=== PATIENT | male | born 1945 | race Two or more races ===

== ENCOUNTER 2021-11-13 08:14 | Day surgery (SDC) | payer MEDICARE ==
[~2021-11-13] VITALS: Ht 182.9 cm; Wt 95.5 kg
[2021-11-13] MEDS ORDERED: IBUP400 PO (08:53)
== END 2021-11-13 10:16 | disposition home or self-care (01) ==
LOC: ORSCSDS 08:14
PROVIDERS: Ophthalmology
PROC: 08RJ3JZ Replacement of Right Lens with Synthetic Substitute, Percutaneous Approach (ICD-10-PCS; principal; 2021-11-13 09:30)
DX: H25.13 Age-related nuclear cataract, bilateral (principal); K21.9 Gastro-esophageal reflux disease without esophagitis
CPT/HCPCS: J2001; J2250; J3010; J3301; J7040; V2632

== ENCOUNTER 2021-12-04 08:15 | Day surgery (SDC) | payer MEDICARE ==
[~2021-12-04] VITALS: Ht 182.9 cm; Wt 95.7 kg
[~2021-12-04 08:15] MED LIST: IBUP400 PO
[2021-12-04] MEDS ORDERED: PSEUDOEPHEDRIN PO (08:38)
--- NOTE | 2021-12-04 08:43 | NUR ---
12/04/21 0843 Susana Taylor CALL LIGHT WITHIN REACH. TETRACAINE AT 0840 PLEDGETT AT 0845 IN THE LEFT EYE
--- NOTE | 2021-12-04 10:14 | NUR ---
12/04/21 [facility] Angel Dubose MULTIPLE BP TAKEN POST OP. READJUSTED CUFF AND NEW CUFF USED (LG) LAST 2 READINGS. PT STATES BP IS NOT ELEVATED AND DOES NOT TAKE BP MED. PRE AND POST BP WRITTEN ON SHEET FOR PT INFORMATION. INFORMED TO SHARE INFORMATION WITH PCP.
== END 2021-12-04 11:02 | disposition home or self-care (01) ==
LOC: ORSCSDS 08:15
PROVIDERS: Ophthalmology
PROC: 08RK3JZ Replacement of Left Lens with Synthetic Substitute, Percutaneous Approach (ICD-10-PCS; principal; 2021-12-04 09:30)
DX: H25.12 Age-related nuclear cataract, left eye (principal); K21.9 Gastro-esophageal reflux disease without esophagitis; Z95.0 Presence of cardiac pacemaker; Z79.899 Other long term (current) drug therapy
CPT/HCPCS: J2250; J3010; J3301; J7040; V2632

== ENCOUNTER 2024-06-28 09:45 | Inpatient (IN) | payer MEDICARE ==
[~2024-06-28] VITALS: Ht 182.9 cm; Wt 98.5 kg
[~2024-06-28 09:45] MED LIST changes: +PSEUDOEPHEDRIN PO
[2024-06-28] MEDS ORDERED: FentaNYL Citrate 50 MCG/ML 2 ML Injection ONE ×2 (10:12→12:15)
[2024-06-28 10:18] LABS: Calcium, Ionized (POC) 1.01 mmol/L (1.10-1.46); Chloride (POC) 109 mmol/L (98-108); Glucose (ISTAT POC) 162 mg/dL (70-99); Potassium (POC) 3.6 mmol/L (3.5-5.5); Sodium (POC) 138 mmol/L (135-148); Total CO2 (POC) 16 mmol/L (21-32)
[2024-06-28 10:22] LABS: BASOPHILS ABSOLUTE AUTO 0.12 K/mm3 (0.00-0.23); BASOPHILS PERCENT AUTO 1 % (0-2); EOSINOPHILS ABSOLUTE AUTO 0.29 K/mm3 (0.00-0.68); EOSINOPHILS PERCENT AUTO 2 % (0-6); Hematocrit 47.3 % (37.0-53.0); Hemoglobin 14.6 g/dL (13.5-17.5); IMMATURE GRAN ABSOLUTE AUTO 0.33 K/mm3 (0.00-0.10); IMMATURE GRAN PERCENT AUTO 2 % (0-1); LYMPHOCYTES ABSOLUTE AUTO 5.25 K/mm3 (0.84-5.20); LYMPHOCYTES PERCENT AUTO 31 % (21-46); MONOCYTES ABSOLUTE AUTO 1.88 K/mm3 (0.16-1.47); MONOCYTES PERCENT AUTO 11 % (4-13); Mean Corpuscular HGB 31.1 pg (26.0-34.0); Mean Corpuscular HGB Conc 30.9 g/dL (31.5-36.5); Mean Corpuscular Volume 101 fL (80-100); Mean Platelet Volume 10.6 fL (9.1-12.4); NEUTROPHILS ABSOLUTE AUTO 9.02 K/mm3 (1.96-9.15); NEUTROPHILS PERCENT AUTO 53 % (41-73); NRBC ABSOLUTE 0.09 K/mm3 (0.00-0.02); NRBC Auto 0.5 /100 WBC (0.0-0.2); Platelet Count 191 K/mm3 (150-400); RDW Coefficient Variation 13.2 % (11.7-14.2); RDW Standard Deviation 49.9 fL (35.1-46.3); White Blood Cell Count 16.89 K/mm3 (4.00-11.30)
[2024-06-28] MEDS ORDERED: Vasopressin 20 UNITS in NS 100 ML IV SCH (10:35)
[2024-06-28] MEDS ORDERED: Midazolam HCl 1MG / ML 2ML Vial ONE ×2 (10:43→11:18)
[2024-06-28 10:45] LABS: Albumin, Blood 3.5 g/dL (3.4-5.0); Albumin/Globulin Ratio 0.9 (0.8-1.8); Bilirubin, Total 0.7 mg/dL (0.1-1.0); Bun/Creatinine Ratio 13.5 (12.0-20.0); Calcium, Blood 8.6 mg/dL (8.5-10.1); Creatinine, Blood 1.63 mg/dL (0.60-1.20); Globulin, Blood 4.1 g/dL (2.2-4.0); Potassium, Blood 3.8 mmol/L (3.5-5.5); Total Protein, Blood 7.6 g/dL (6.4-8.2)
[2024-06-28] MEDS ORDERED: Midazolam HCL 100 MG in NS 80 ML IV PRN (10:45)
[2024-06-28 11:14] LABS: Base Excess Venous -11.5 mmol/L; Bicarbonate Venous 15.3 mmol/L (24.0-30.0); PCO2 Venous 54.5 mmHg (38-42)
[2024-06-28 11:16] LABS: pH Blood Venous 7.12 (7.34-7.37)
[2024-06-28] MEDS ORDERED: fentaNYL citrate 1,000 MCG in NS 80 ML IV SCH (12:05)
[2024-06-28] MEDS ORDERED: propofoL 100 ML IV SCH ×2 (12:15→14:45)
[2024-06-28] MEDS ORDERED: FLU VACC TS2024-25(6MOS UP)/PF 45 MCG/0.5 ML SYRINGE IM ONE (12:30)
[2024-06-28] MEDS ORDERED: FentaNYL Citrate 50 MCG/ML 2 ML Injection IV PRN (12:30)
[2024-06-28] MEDS ORDERED: CefTRIAXone Sodium 1,000 MG in NS 100 ML IV SCH (12:36)
[2024-06-28] MEDS ORDERED: Sodium Bicarb 8.4% 1 MEQ/ML 50 ML Vial IV ONE (12:40)
[2024-06-28] MEDS ORDERED: NS 1,000 ML IV ONE ×6 (14:16→20:29)
[2024-06-28 15:00] VITALS: BP 114/77
[2024-06-28 15:08] LABS: PCO2 Arterial 41.3 mmHg (35-45); PO2 Arterial 297 mmHg (80-100); pH Blood Arterial 7.19 (7.35-7.45)
[2024-06-28 15:15] VITALS: BP 98/68
[2024-06-28 15:18] VITALS: BP 126/65
[2024-06-28 15:42] LABS: Albumin, Blood 2.8 g/dL (3.4-5.0); Albumin/Globulin Ratio 0.8 (0.8-1.8); Bilirubin, Total 0.4 mg/dL (0.1-1.0); Bun/Creatinine Ratio 13.7 (12.0-20.0); Calcium, Blood 8.2 mg/dL (8.5-10.1); Creatinine, Blood 1.82 mg/dL (0.60-1.20); Globulin, Blood 3.3 g/dL (2.2-4.0); Magnesium, Blood 2.2 mg/dL (1.6-2.4); Phosphorus, Blood 2.5 mg/dL (2.5-4.9); Potassium, Blood 3.1 mmol/L (3.5-5.5); Total Protein, Blood 6.1 g/dL (6.4-8.2)
[2024-06-28 15:53] VITALS: BP 119/61
[2024-06-28 16:08] LABS: Anti-Xa UFH, PHA Monitoring <0.10 IU/mL; International Normalized Ratio 1.43; Prothrombin Time Results 14.9 Sec (9.7-11.5)
[2024-06-28 16:15] VITALS: BP 106/58
[2024-06-28] MEDS ORDERED: ALTEPLASE 1 MG/ML IV SCH (16:30)
[2024-06-28] MEDS ORDERED: Calcium Chloride 10% 10 ML SYR IV ONE (17:26)
[2024-06-28] MEDS ORDERED: EPINEPhrine HCl 0.1 MG/ML 10ML SYR IV ONE (17:26)
[2024-06-28] MEDS ORDERED: Sodium Bicarb 8.4% 50 mEq Syringe IV ONE (17:26)
[2024-06-28] MEDS ORDERED: Dose Adjust by Pharmacy XX STA (17:36)
[2024-06-28] MEDS ORDERED: Heparin Sodium,Porcine/0.5 NS 500 ML IV SCH (17:40)
[2024-06-28] MEDS ORDERED: NS 250 ML IV ONE (18:12)
[2024-06-28] MEDS ORDERED: Heparin Sodium 1000 Units/ML 10ML MDV ONE ×3 (18:12→20:29)
[2024-06-28] MEDS ORDERED: NS 100 ML IV ONE (18:25)
[2024-06-28] MEDS ORDERED: Potassium Chloride 20 MEQ/15 ML UDC PO ONE (18:40)
[2024-06-28] MEDS ORDERED: Potassium Chloride 20 MEQ in NS 90 ML IV ONE (18:40)
--- NOTE | 2024-06-28 19:00 | NUR ---
ASSUMED CARE OF PT: ASSUMED CARE OF PT IN STAFF RESEARCH SCIENTIST FROM JT Cochran RN AT 1900. THIS RN TO STAFF RESEARCH SCIENTIST WITH PT TO MANAGE CRITICAL DRIPS. LEVOPHED INFUSING AT 25 MCG/MIN, FENTANYL AT 75 MCG/HR, AMIO AT 0.5 MG/MIN AND PROPOFOL AT 30 MCG/KG/MIN WHEN ASSUMED CARE OF PT. MAP <65 DURING STAFF RESEARCH SCIENTIST PROCEDURE, TITRATED LEVOPHED NEEDED. LEVOPHED TITRATED FROM 25-50 MCG/MIN DURING STAFF RESEARCH SCIENTIST PROCEDURE AND VASOPRESSIN RESTARTED AT 0.4 UNITS/MIN. PT RECEIVED A CHEST TUBE TO LEFT ANTERIOR CHEST WALL WHILE IN STAFF RESEARCH SCIENTIST R/T PNEUMOTHORAX. SEE STAFF RESEARCH SCIENTIST NOTES. PT BP STABILIZED AFTER CHEST TUBE INSERTION AND LEVO WAS THEN TITRATED BACK DOWN TO 25-30 MCG/MIN AND VASOPRESSIN SET TO SB. SEDATION TURNED DOWN TO 15 MCG/KG/MIN WHILE MAP <65, PT STARTED TO WAKE UP AND WITHDRAW TO PAINFUL STIMULI WHILE ON STAFF RESEARCH SCIENTIST TABLE. PROPOFOL TURNED BACK UP TO 25 MCG/KG/MIN FOR COMFORT AND VENT COMPLIANCE. ONCE STAFF RESEARCH SCIENTIST PROCEDURE COMPLETE PT TAKEN BACK TO ICU 13 BY BED.
--- NOTE | 2024-06-28 19:29 | NUR ---
SHIFT SUMMARY: NEURO: PATIENT OPENS EYES OCCASIONALLY. PATIENT TOLERATED THE VENT WELL. PATIENT ENDED THE SHIFT WITH PROPOFOL AT 20 MCG/KG/MIN. CPOT 0. FENTANYL GTT INFUSING AT 100 MCG/HOUR. [place] STOPPED AT ADMISSION TO TRANSITION TO PROPOFOL. CARDIAC: LEVOPHED TITRATED PER ARTERIAL LINE MAPS. VASOPRESSIN GTT INFUSING NEEDED TO MAINTAIN MAPS >65. CENTRAL LINE AND ARTERIAL LINE BOTH IN THE RIGHT FEMORAL REGION. HR IN THE 90S-100S. PULSES PALPABLE. RESPIRATORY: PATIENT ON AC/VC PLUS. SETTINGS 26/600/5/85%. ETCO2 DECLINED DURING THE AFTERNOON AND ENDED AT 14. LUNG SOUNDS DIMINISHED. ETT IN PLACE, SIZE 8.0, 24 AT THE TEETH. GI/: PATIENT HAD A BOWEL MOVEMENT AT ADMISSION. INITIAL CHARLES PLACEMENT ATTEMPT RESULTED IN THE PASSING OF A BLOOD CLOT. DR. RÍOS AWARE. THREE WAY CHARLES PLACED FOR POTENTIAL IRRIGATION. PRN IRRIGATION AT THIS TIME. NO FURTHER BLOOD CLOTS OR BLOOD DISCHARGE IN CHARLES. MINIMAL YELLOW OUTPUT. PSYCHSOCIAL: FAMILY AT BEDSIDE. THEY ARE SUPPORTIVE OF THE PATIENT AND APPRECIATIVE OF THE STAFF.
[2024-06-28] MEDS ORDERED: Midazolam HCl 1MG / ML 2ML Vial IM ONE (19:56)
[2024-06-28] MEDS ORDERED: Phenylephrine HCl 100 MCG/ML-NS 10MLSYR (1MG/10ML) IV ONE (19:56)
[2024-06-28] MEDS ORDERED: Etomidate 2MG / ML 10ML Vial IV ONE (19:56)
[2024-06-28] MEDS ORDERED: Phenylephrine HCl 100 MCG/ML-NS 10MLSYR (1MG/10ML) ONE (21:02)
[2024-06-28 22:19] LABS: PCO2 Arterial 34.8 mmHg (35-45); PO2 Arterial 93.3 mmHg (80-100)
[2024-06-28 22:21] LABS: pH Blood Arterial 7.26 (7.35-7.45)
[2024-06-28 22:45] LABS: BASOPHILS ABSOLUTE AUTO 0.02 K/mm3 (0.00-0.23); BASOPHILS PERCENT AUTO 0 % (0-2); EOSINOPHILS ABSOLUTE AUTO 0.01 K/mm3 (0.00-0.68); EOSINOPHILS PERCENT AUTO 0 % (0-6); Hematocrit 29.6 % (37.0-53.0); Hemoglobin 9.7 g/dL (13.5-17.5); IMMATURE GRAN ABSOLUTE AUTO 0.08 K/mm3 (0.00-0.10); IMMATURE GRAN PERCENT AUTO 1 % (0-1); LYMPHOCYTES ABSOLUTE AUTO 1.01 K/mm3 (0.84-5.20); LYMPHOCYTES PERCENT AUTO 6 % (21-46); MONOCYTES ABSOLUTE AUTO 1.47 K/mm3 (0.16-1.47); MONOCYTES PERCENT AUTO 9 % (4-13); Mean Corpuscular HGB 31.4 pg (26.0-34.0); Mean Corpuscular HGB Conc 32.8 g/dL (31.5-36.5); Mean Platelet Volume 10.4 fL (9.1-12.4); NEUTROPHILS ABSOLUTE AUTO 13.51 K/mm3 (1.96-9.15); NEUTROPHILS PERCENT AUTO 84 % (41-73); Platelet Count 149 K/mm3 (150-400); RDW Coefficient Variation 13.7 % (11.7-14.2); Red Blood Cell Count 3.09 M/mm3 (4.30-5.90)
[2024-06-28 22:53] LABS: Mean Corpuscular Volume 96 fL (80-100)
[2024-06-28 23:04] LABS: Magnesium, Blood 1.7 mg/dL (1.6-2.4)
[2024-06-28 23:22] LABS: Creatinine, Blood 1.93 mg/dL (0.60-1.20); Potassium, Blood 2.9 mmol/L (3.5-5.5)
[2024-06-28 23:23] LABS: Calcium, Blood 6.2 mg/dL (8.5-10.1)
--- NOTE | 2024-06-28 23:56 | NUR ---
ARRIVAL TO ICU FROM ORCHID WORKER: PT BACK TO ICU 13 FROM ORCHID WORKER AT 2155. PT INTUBATED AND SEDATED ON 25 MCG/KG/MIN OF PROPOFOL. PT HAD RESPONSE TO PAINFUL STIMULI IN ORCHID WORKER. PUPILS PINPOINT AND APPEAR SLUGGISH AT TIMES. VENT SETTINGS AC/VC 26/600/5.0/50%. SPO2 MID TO HIGH 90'S. LUNGS CLEAR. RR 20'S. ETCO2 15-20. ET TUBE 7.5, 24 AT THE TEETH. CIRCULAR SAW EDGE FUSER IN PLACE, SR WITH PVC'S, HR 90'S. MAP >65 ACCORDING TO A-LINE, LEVOPHED INFUSING AND TITRATED ACCORDINGLY. SEE FLOWSHEET FOR TITRATIONS. FENTANYL DRIP AT 75 MCG/HR. AMIO AT 0.5 MG/MIN, HEPARIN AT 18 U/KG/HR. CHARLES PATENT AND DRAINING TO GRAVITY VERY LITTLE YELLOW URINE. CHEST TUBE TO LEFT ANTERIOR CHEST WALL, DRESSING SECURED, C/D/I. A-LINE/CENTRAL LINE TO RIGHT GROIN, PATENT. LEFT GROIN SITE SHOWS NO SIGNS OF BLEEDING OR HEMATOMA. FLOWSTASIS IN PLACE. PT FAMILY AT THE BEDSIDE AFTER ORCHID WORKER PROCEDURE, UPDATED TO PT CONDITION. BED LOW AND LOCKED.
[2024-06-29] MEDS ORDERED: Dose Adjust by Pharmacy XX STA (01:17)
[2024-06-29 02:20] LABS: PCO2 Arterial 34.4 mmHg (35-45); PO2 Arterial 69.7 mmHg (80-100); pH Blood Arterial 7.27 (7.35-7.45)
[2024-06-29] MEDS ORDERED: Hydrogen Peroxide 1.5 % Solution MT SCH (04:00)
[2024-06-29 04:09] LABS: Hemoglobin 11.5 g/dL (13.5-17.5); Mean Corpuscular HGB 31.5 pg (26.0-34.0); Mean Corpuscular HGB Conc 33.8 g/dL (31.5-36.5); Mean Corpuscular Volume 93 fL (80-100); Mean Platelet Volume 10.2 fL (9.1-12.4); Platelet Count 155 K/mm3 (150-400); RDW Coefficient Variation 13.6 % (11.7-14.2); RDW Standard Deviation 46.2 fL (35.1-46.3); Red Blood Cell Count 3.65 M/mm3 (4.30-5.90); White Blood Cell Count 19.83 K/mm3 (4.00-11.30)
[2024-06-29 04:54] LABS: Albumin, Blood 2.8 g/dL (3.4-5.0); Albumin/Globulin Ratio 0.9 (0.8-1.8); Bilirubin, Total 0.4 mg/dL (0.1-1.0); Bun/Creatinine Ratio 11.7 (12.0-20.0); Calcium, Blood 7.5 mg/dL (8.5-10.1); Creatinine, Blood 2.64 mg/dL (0.60-1.20); Globulin, Blood 3.1 g/dL (2.2-4.0); Magnesium, Blood 2.1 mg/dL (1.6-2.4); Phosphorus, Blood 4.2 mg/dL (2.5-4.9); Potassium, Blood 4.4 mmol/L (3.5-5.5); Total Protein, Blood 5.9 g/dL (6.4-8.2)
--- NOTE | 2024-06-29 05:59 | NUR ---
SHIFT SUMMARY: PT WAKING UP TO VERBAL STIMULI WHEN SEDATION DECREASED. FOLLOWS COMMANDS, ABLE TO SQUEEZE HANDS BILATERALLY. VENT SETTINGS AC/VC 26/600/5.0/40% FIO2, SPO2 MID TO HIGH 90'S. LUNGS CLEAR. ETCO2 13-15. OUTSIDE RESIDENTIAL SALES PROFESSIONAL IN PLACE, SR WITH FREQUENT PVC'S. HR 70'S. MAP >65 ACCORDING TO A-LINE. LEVOPHED INFUSING TO MAINTAIN MAP >65 WITH VASOPRESSIN WELL. SEE FLOWSHEET FOR TITRATIONS. CURRENT RATE OF 30 MCG/MIN OF LEVO AND 0.04 UNITS/MIN VASOPRESSIN. PROPOFOL INFUSING AT 25 MCG/KG/MIN WITH FENTANYL AN ADJUNCT INFUSING AT 75 MCG/HR. HEPARIN GTT DECREASED TO 12 UNITS/KG/HR THIS SHIFT. AMIO CONTINUES AT 0.5 MG/MIN. CHEST TUBE TO LEFT ANTERIOR CHEST WALL, DRESSING C/D/I. ARTLINE AND CENTRAL LINE TO RIGHT GROIN BOTH PATENT. DRESSING CHANGED THIS SHIFT, C/D/I. FLOWSTASIS TO LEFT GROIN, SHOWS NO NEW SIGNS OF BLEEDING OR HEMATOMA. NEW BRUISING NOTED THIS SHIFT BUT SITE REMAINS SOFT TO THE TOUCH. ABDOMEN DISTENDED BUT SOFT. CHARLES PATENT AND DRAINING TO GRAVITY YELLOW URINE. FEET AND HANDS COOL TO TOUCH, PULSES PALPABLE. BED LOW AND LOCKED.
[2024-06-29] MEDS ORDERED: NS 250 ML IV PRN (08:10)
[2024-06-29] MEDS ORDERED: Enoxaparin 40 MG/0.4 ML SYR SC SCH (09:00)
[2024-06-29] MEDS ORDERED: Albumin Human 50 ML IV ONE (10:50)
[2024-06-29] MEDS ORDERED: Albumin (Human) 12.5gm/250ml 250 ML IV ONE (11:10)
[2024-06-29 11:11] LABS: Triglycerides 118 mg/dL (30-160)
--- NOTE | 2024-06-29 18:20 | NUR ---
Pt continues ventilated and sedated. Levophed titrated down this shift, see flowsheet. Fi02 down to 35% this shift. Flow-stasis device still in place, Dr. Olivas to reassess in the morning. No acute events this shift. See chart for further details.
[2024-06-29 21:50] VITALS: BP 150/54
[2024-06-29 22:39] VITALS: BP 13/58; BP 138/58
[2024-06-30] VITALS (10 sets, daily range): BP systolic 89–152; BP diastolic 40–57
[2024-06-30] MEDS ORDERED: Hydrogen Peroxide 1.5 % Solution MT SCH
[2024-06-30] MEDS ORDERED: Clarify Drug Order XX ONE ×2 (00:15→06:55)
[2024-06-30 06:04] LABS: BASOPHILS ABSOLUTE AUTO 0.06 K/mm3 (0.00-0.23); BASOPHILS PERCENT AUTO 0 % (0-2); EOSINOPHILS ABSOLUTE AUTO 0.04 K/mm3 (0.00-0.68); EOSINOPHILS PERCENT AUTO 0 % (0-6); Hematocrit 24.4 % (37.0-53.0); Hemoglobin 8.5 g/dL (13.5-17.5); IMMATURE GRAN ABSOLUTE AUTO 0.11 K/mm3 (0.00-0.10); IMMATURE GRAN PERCENT AUTO 1 % (0-1); LYMPHOCYTES ABSOLUTE AUTO 2.18 K/mm3 (0.84-5.20); LYMPHOCYTES PERCENT AUTO 12 % (21-46); MONOCYTES ABSOLUTE AUTO 1.87 K/mm3 (0.16-1.47); MONOCYTES PERCENT AUTO 11 % (4-13); Mean Corpuscular HGB Conc 34.8 g/dL (31.5-36.5); Mean Corpuscular Volume 92 fL (80-100); Mean Platelet Volume 11.4 fL (9.1-12.4); NEUTROPHILS ABSOLUTE AUTO 13.34 K/mm3 (1.96-9.15); NEUTROPHILS PERCENT AUTO 76 % (41-73); Platelet Count 117 K/mm3 (150-400); RDW Coefficient Variation 13.8 % (11.7-14.2); RDW Standard Deviation 46.5 fL (35.1-46.3); Red Blood Cell Count 2.66 M/mm3 (4.30-5.90)
[2024-06-30 06:34] LABS: Magnesium, Blood 1.8 mg/dL (1.6-2.4); Phosphorus, Blood 2.7 mg/dL (2.5-4.9)
--- NOTE | 2024-06-30 06:55 | NUR ---
SHIFT SUMMARY NO ACUTE CHANGES DURING NOC. REMAINS INTUBATED- AC/VC+ 22/600/5/40%. SEDATED WITH PROPOFOL AT 40MCG/KG/MIN AND FENTANYL 125MCG/HR. OPENS EYES TO NOXIOUS STIMULI. ATTEMPTS TO MOUTH WORDS. NOT FOLLOWING COMMANDS, BUT DOES MOVE ALL EXTREMITITES WEAKLY. FACIAL GRIMACING NOTED WITH ANY MOVEMENT. MONITOR SHOWS SB-SR WITH 1ST DEGREE AV BLOCK, RATE 50s-60s. LEVOPHED INFUSING AT 8MCG/MIN THIS AM (TITRATED DOWN FROM 20MCG/MIN) AND VERSED AT 0.04UNITS/MIN TO MAINTAIN MAP GREATER THAN 65. HEPARIN INFUSING AT 9UNITS/KG/HR PER ORDER. LEFT ANTERIOR CHEST TUBE IN PLACE- DRAINING SANGUINOUS DRAINAGE. OG WITH VITAL HIGH PROTEIN AT 10MLS/HR WITH 30MLS H20 FLUSH Q4H. CHARLES PATENT AND DRAINING TO GRAVITY. SMALL AMOUNT OF BLOOD//CLOTS NOTED AT [facility] WITH CATH CARE. RIGHT FEMORAL A-LINE AND CENTRAL LINE PATENT WITH DRSG C/I. PLAN OF CARE ONGOING. WILL REPORT TO ONCOMING RN WHEN AVAILABLE.
[2024-06-30] MEDS ORDERED: Cetylpyridinium Chloride 1 EA MISC MT SCH (08:00)
[2024-06-30] MEDS ORDERED: Pantoprazole Sodium 40 MG Injection IV SCH (09:00)
[2024-06-30 10:36] LABS: Hematocrit 23.8 % (37.0-53.0); Hemoglobin 8.4 g/dL (13.5-17.5)
[2024-06-30 10:46] LABS: pH Blood Arterial 7.43 (7.35-7.45)
[2024-06-30 11:00] LABS: Albumin, Blood 2.4 g/dL (3.4-5.0); Albumin/Globulin Ratio 0.8 (0.8-1.8); Bilirubin, Total 0.4 mg/dL (0.1-1.0); Creatinine, Blood 3.85 mg/dL (0.60-1.20); Globulin, Blood 2.9 g/dL (2.2-4.0); Magnesium, Blood 1.9 mg/dL (1.6-2.4); Phosphorus, Blood 3.2 mg/dL (2.5-4.9); Potassium, Blood 5.7 mmol/L (3.5-5.5); Total Protein, Blood 5.3 g/dL (6.4-8.2)
[2024-06-30] MEDS ORDERED: Piperacillin/Tazobactam Sod 3.375 GM in NS 100 ML IV ONE (11:00)
[2024-06-30] MEDS ORDERED: Dose Adjust by Pharmacy XX STA (11:06)
[2024-06-30] MEDS ORDERED: Dextrose 50% 50 ML Vial IV ONE ×2 (12:28→15:20)
[2024-06-30] MEDS ORDERED: Insulin Regular 100 UNIT/ML 10ML Vial IV ONE (12:29)
[2024-06-30] MEDS ORDERED: LORazepam 2 MG/ML 1ML Injection IV PRN (13:00)
[2024-06-30] MEDS ORDERED: Thiamine HCl 250 MG in NS 100 ML IV SCH (13:30)
[2024-06-30] MEDS ORDERED: Sodium Zirconium Cyclosilicate 10 GM Packet PO SCH (14:00)
[2024-06-30 15:09] LABS: PCO2 Arterial 36.7 mmHg (35-45); PO2 Arterial 69.8 mmHg (80-100); pH Blood Arterial 7.33 (7.35-7.45)
[2024-06-30 18:10] LABS: Hematocrit 22.8 % (37.0-53.0); Hemoglobin 7.8 g/dL (13.5-17.5)
[2024-06-30 18:36] LABS: Bun/Creatinine Ratio 15.4 (12.0-20.0); Calcium, Blood 6.7 mg/dL (8.5-10.1); Creatinine, Blood 3.89 mg/dL (0.60-1.20); Potassium, Blood 5.3 mmol/L (3.5-5.5)
--- NOTE | 2024-06-30 18:38 | NUR ---
Summary. Pt continues sedated and intubated. Pressor requirements continuing to decrease. Nephrology consulted for HODA. No acute events this shift, see chart for further details.
[2024-06-30] MEDS ORDERED: Piperacillin/Tazobactam Sod 3.375 GM in NS 100 ML IV SCH (21:00)
[2024-07-01 01:06] LABS: Hematocrit 24.9 % (37.0-53.0); Hemoglobin 8.5 g/dL (13.5-17.5)
[2024-07-01 01:31] LABS: Bun/Creatinine Ratio 14.9 (12.0-20.0); Calcium, Blood 6.8 mg/dL (8.5-10.1); Creatinine, Blood 3.68 mg/dL (0.60-1.20); Potassium, Blood 4.9 mmol/L (3.5-5.5)
[2024-07-01] MEDS ORDERED: Dose Adjust by Pharmacy XX STA ×3 (04:26→16:17)
[2024-07-01 05:01] VITALS: BP 134/57
[2024-07-01 05:54] LABS: Hematocrit 25.2 % (37.0-53.0); Hemoglobin 8.7 g/dL (13.5-17.5); Mean Platelet Volume 11.3 fL (9.1-12.4); Platelet Count 108 K/mm3 (150-400)
--- NOTE | 2024-07-01 05:55 | NUR ---
SHIFT SUMMARY NO ACUTE CHANGES DURING NOC. REMAINS INTUBATED- AC/VC+ 18/570/5/35%. SEDATED WITH PROPOFOL AT 40MCG/KG/MIN AND FENTANYL 125MCG/HR. MEDICATED WITH ATIVAN 1MG IV X 1 DOSE FOR INCREASED RESTLESSNESS. OPENS EYES TO VERBAL STIMULI. NOT FOLLOWING COMMANDS, BUT DOES MOVE ALL EXTREMITITES WEAKLY. FACIAL GRIMACING NOTED WITH ANY MOVEMENT. MONITOR SHOWS SR WITH 1ST DEGREE AV BLOCK, RATE 50s-60s. LEVOPHED INFUSING AT 7MCG/MIN THIS AM (TITRATED DOWN FROM 8MCG/MIN) TO MAINTAIN MAP GREATER THAN 65. HEPARIN INFUSING AT 11UNITS/KG/HR PER ORDER. LEFT ANTERIOR CHEST TUBE IN PLACE- DRAINING SMALL AMOUNT SERO-SANGUINOUS DRAINAGE. OG WITH VITAL HIGH PROTEIN AT 10MLS/HR WITH 30MLS H20 FLUSH Q4H. CHARLES PATENT AND DRAINING TO GRAVITY. SMALL AMOUNT OF OLD BLOOD//CLOTS NOTED AT [facility] WITH CATH CARE. RIGHT FEMORAL A-LINE AND CENTRAL LINE PATENT WITH DRSG C/I. TRANSFUSED ONE UNIT PRBC DURING SHIFT. PLAN OF CARE ONGOING. WILL REPORT TO ONCOMING RN WHEN AVAILABLE.
[2024-07-01 06:19] LABS: Magnesium, Blood 2.1 mg/dL (1.6-2.4); Percent Saturation 13.2 % (20.0-50.0)
[2024-07-01 06:20] LABS: Phosphorus, Blood 4.1 mg/dL (2.5-4.9)
[2024-07-01 14:29] LABS: Albumin, Blood 2.4 g/dL (3.4-5.0); Anion Gap 13 mmol/L (3-11); Blood Urea Nitrogen 51 mg/dL (8-24); Bun/Creatinine Ratio 15.8 (12.0-20.0); CO2, Blood 19 mmol/L (21-32); Chloride, Blood 112 mmol/L (98-108); Creatinine, Blood 3.22 mg/dL (0.60-1.20); Glomerular Filtration Rate 19 (60-); Glucose, Blood 91 mg/dL (70-99); Phosphorus, Blood 3.4 mg/dL (2.5-4.9); Potassium, Blood 4.8 mmol/L (3.5-5.5); Sodium, Blood 139 mmol/L (136-145)
--- NOTE | 2024-07-01 18:32 | NUR ---
Summary. Pt continues sedated and intubated. Pressors titrated down further this shift. Urine output much improved. No acute events this shift, see chart for further details. Family updated throughout shift.
[2024-07-01 19:30] VITALS: BP 114/48
[2024-07-02 04:00] LABS: BASOPHILS ABSOLUTE AUTO 0.04 K/mm3 (0.00-0.23); BASOPHILS PERCENT AUTO 0 % (0-2); EOSINOPHILS ABSOLUTE AUTO 0.17 K/mm3 (0.00-0.68); EOSINOPHILS PERCENT AUTO 2 % (0-6); Hematocrit 24.5 % (37.0-53.0); Hemoglobin 8.4 g/dL (13.5-17.5); IMMATURE GRAN ABSOLUTE AUTO 0.16 K/mm3 (0.00-0.10); IMMATURE GRAN PERCENT AUTO 1 % (0-1); LYMPHOCYTES ABSOLUTE AUTO 1.04 K/mm3 (0.84-5.20); LYMPHOCYTES PERCENT AUTO 9 % (21-46); MONOCYTES ABSOLUTE AUTO 0.99 K/mm3 (0.16-1.47); MONOCYTES PERCENT AUTO 9 % (4-13); Mean Corpuscular HGB 32.2 pg (26.0-34.0); Mean Corpuscular HGB Conc 34.3 g/dL (31.5-36.5); Mean Corpuscular Volume 94 fL (80-100); Mean Platelet Volume 10.8 fL (9.1-12.4); NEUTROPHILS ABSOLUTE AUTO 8.78 K/mm3 (1.96-9.15); NEUTROPHILS PERCENT AUTO 79 % (41-73); Platelet Count 126 K/mm3 (150-400); RDW Coefficient Variation 14.5 % (11.7-14.2); RDW Standard Deviation 49.2 fL (35.1-46.3); Red Blood Cell Count 2.61 M/mm3 (4.30-5.90); White Blood Cell Count 11.18 K/mm3 (4.00-11.30)
[2024-07-02 04:35] LABS: Albumin, Blood 2.4 g/dL (3.4-5.0); Albumin/Globulin Ratio 0.7 (0.8-1.8); Bilirubin, Total 0.4 mg/dL (0.1-1.0); Bun/Creatinine Ratio 16.8 (12.0-20.0); Calcium, Blood 7.2 mg/dL (8.5-10.1); Creatinine, Blood 2.79 mg/dL (0.60-1.20); Globulin, Blood 3.4 g/dL (2.2-4.0); Magnesium, Blood 2.2 mg/dL (1.6-2.4); Potassium, Blood 4.7 mmol/L (3.5-5.5); Total Protein, Blood 5.8 g/dL (6.4-8.2)
--- NOTE | 2024-07-02 05:46 | NUR ---
SHIFT SUMMARY PT INTUBATED/SEDATED. RESPONDS TO VERBAL STIMULI, GRIMACES AND WITHDRAWS FROM PAINFUL STIMULI. NOT FOLLOWING COMMANDS. PROPOFOL AND FENT GTT INFUSING. ON FINANCIAL SALES CONSULTANT, HR 80'S, MAPS > 65, LEVO ON SB @ 0545. SINUS W/ PVC'S. VENT SETTINGS- ACVC 18/570/5/35%, SATS > 94%. L/S CLEAR T/O. CHEST TUBE PATENT AND DRAINING SS FLUID, NO CREPITUS NOTED, NON-FLUCTUATING, FREE OF KINKS. NO BM THIS SHIFT. CHARLES DRAINING TO GRAVITY W/ GOOD UOP NOTED. ART LINE AND CL DRESSING C/D/I. TF INFUSING TO OGT AT GOAL.
[2024-07-02] MEDS ORDERED: Dose Adjust by Pharmacy XX STA (06:12)
[2024-07-02 07:00] VITALS: BP 115/50
--- NOTE | 2024-07-02 07:26 | NUR ---
ASSUMED CARE OF PATIENT AT APPROXIMATELY 0700. REPORT RECEIVED FROM GABY CONNER AND DARCI RN. PT INTUBATED AND SEDATED. PROPOFOL INFUSING AT 25 MCG/KG/HR, FENTANYL INFUSING AT 125 MCG/HR. CONTINOUS CARDIAC MONITORING IN PLACE SHOWS SR, ABP STABLE. VENT SETTINGS 18/570/5/35%. O2 SATURATIONS > 92%. CHEST TUBE TO SUCTION. TF INFUSING. CHARLES IN PLACE. SEE SHIFT ASSESSMENT FOR FULL DETAILS.
[2024-07-02] MEDS ORDERED: Piperacillin/Tazobactam Sod 3.375 GM in NS 100 ML IV SCH (08:10)
[2024-07-02] MEDS ORDERED: Morphine Sulfate 4 MG/1 ML Injection ONE (13:46)
[2024-07-02] MEDS ORDERED: Atropine Sulfate 1% Opth Soln 2ML BTL SL PRN (13:50)
[2024-07-02] MEDS ORDERED: Morphine Sulfate 10 MG/ML 1MLSYR IV PRN (13:50)
[2024-07-02] MEDS ORDERED: Scopolamine Hydrobromide Patch TOP PRN (13:50)
[2024-07-02] MEDS ORDERED: LORazepam 2 MG/ML 1ML Injection IV PRN (13:50)
[2024-07-02] MEDS ORDERED: Morphine Sulfate 20 MG/1ML 1 ML Oral Syringe SL PRN (13:50)
--- NOTE | 2024-07-02 15:21 | NUR ---
Comfort Care Pt was extubated today, he was unable to maintain his airway or secretions. Family made the decision to place pt on comfort care. Dr. Fuentes ordered this, and bedside RN administered comfort care medications. The patient appears comfortable at this time. Family remains at bedside.
--- NOTE | 2024-07-02 16:01 | NUR ---
EXTUBATION / UPDATE PT EXTUBATED AT 1258 TO 5 LPM O2 VIA NC. PT FOLLOWING COMMANDS WITH WEAK COUGH AND THICK SECRETIONS AT THIS TIME, DESATURATION TO 70'S. PT WITH AUDIBLE AIRWAY OBSTRUCTION. RT PERFORMED JAW THRUST AND PT WAS THEN PLACED ON 15 LPM NRB. O2 SATURATIONS RETURNED TO LOW 90'S. RT PLACED NASAL TRUMPET AND PT WAS PLACED ON OXIMASK AT 11 LPM. PT ABILITY TO CLEAR SECRETIONS DECREASED AND WAS REQUIRING MORE FREQUENT SUCTIONING. PT FAMILY AND PALLIATIVE CARE AT BEDSIDE AND DECISION WAS MADE TO MAKE PT COMFORT CARE AT APPROXIMATELY 1350.
--- NOTE | 2024-07-02 17:24 | NUR ---
NO ACUTE EVENTS SINCE PREVIOUS NOTE REGARDING EXTUBATION AND MOVE TO COMFORT CARE STATUS. MEDICATING PER EMAR WITH GOOD BENEFIT. FAMILY AT BEDSIDE AND UPDATED FREQUENTLY. DECLINES SPIRITUAL CARE VISIT AT THIS TIME. WILL CONTINUE TO MONITOR AND REPORT TO ONCOMING RN.
--- NOTE | 2024-07-02 19:45 | NUR ---
ASSUMPTION OF CARE ASSUMED CARE OF PATIENT AT 1900, BEDSIDE SHIFT REPORT RECEIVED FROM CLEMENCIA RN. PT RESTING IN BED, RESPONSIVE TO NOXIOUS STIMULI. PT BITES DOWN WITH ORAL CARE, MOVES ARMS AND LEGS DURING TURNS. PT COMFORT CARE STATUS, FENTANYL DRIP INFUSING AT 125MCG/HR. HR 100-110'S SINUS, ARTERIAL LINE IN PLACE TO RIGHT GROIN, MAP >60. PT ON RA, OXYGEN SATURATION 50-60'S, ATROPINE DROPS ADMINISTERED PER EMAR FOR SECRETIONS. CHEST TUBE IN PLACE TO LEFT CHEST. CENTRAL LINE IN PLACE TO RIGHT GROIN. BED IN LOWEST POSITION, FAMILY AT THE BEDSIDE. CARE CONTINUES.
[2024-07-02 20:01] VITALS: BP 113/49
--- NOTE | 2024-07-03 05:37 | NUR ---
SHIFT SUMMARY PT CONITNUES TO REST IN BED, RESPONSIVE TO NOXIOUS STIMULI. FENTANYL DRIP INFUSING AT 125MCG/HR. PT OPENS EYES WITH TURNS AND CLOSES MOUTH WITH ORAL CARE. ATROPINE DROPS ADMINISTERED PER EMAR FOR SECRETIONS. PT ON RA, OXYGEN SATURATION 40-70'S, PT COMFORT CARE STATUS. CHEST TUBE IN PLACE TO LEFT CHEST. HR 90-110'S SINUS. ARTERIAL LINE AND CENTRAL LINE PULLED THIS SHIFT, RIGHT GROIN SITE SOFT, DRESSING IN PLACE. NO OOZING OR HEMATOMA FORMATION NOTED. ABDOMEN SOFT, BOWEL TONES HYPOACTIVE. CHARLES IN PLACE PATENT DRAINING YELLOW URINE TO GRAVITY. PIV IN PLACE TO RAC. BED IN LOWEST POSITION, FAMILY AT THE BEDSIDE. CARE CONTINUES.
--- NOTE | 2024-07-03 07:19 | NUR ---
ASSUMED CARE OF PATIENT AT APPROXIMATELY 0700. REPORT RECEIVED FROM UBALDO HERNANDEZ. PT IS COMFORT CARE STATUS, RESTING IN BED. FAMILY AT BEDSIDE DURING BEDSIDE REPORT. RECENTLY MEDICATED PER EMAR BY NOC SHIFT. BRIEFLY RESPONDS TO NOXIOUS STIMULI. CONTINOUS CARDIAC MONITORING SHOWS SR-ST. ON RA WITH O2 SATURATIONS 40s-60s. DRESSING TO PREVIOUSLY REMOVED CENTRAL LINE C/D/I. SOFT AND NONTENDER. CHARLES IN PLACE. FENTANYL INFUSING AT 125 MCG/HR. SEE SHIFT ASSESSMENT FOR FULL DETAILS.
[2024-07-03] MEDS ORDERED: LORazepam 2 MG/ML 1ML Injection IV PRN (10:35)
--- NOTE | 2024-07-03 18:38 | NUR ---
SHIFT SUMMARY: ICU TRANSFER TO MEDICAL FLOOR THIS AM. PT UNRESPONSIVE UPON ARRIVAL. COMFORT CARE PT. COMFORT MEDICATIONS PROVIDED SEVERAL TIMES SINCE ARRIVAL INCLUDING ROXANOL, ATIVAN, AND ATROPINE DROPS. CHARLES IN PLACE DRAINING YELLOW URINE TO GRAVITY. PERIODS OF APNEA NOTED WITH VERY WET GURGLING. SUCTION AT BEDSIDE. CHEST TUBE REMAINS IN PLACE AT THIS TIME. REPOSITION Q2 COMPLETED. FAMILY CHOOSES [facility] HOME UPON EXPIRATION. CALL LIGHT IN REACH. FAMILY AT BEDSIDE.
--- NOTE | 2024-07-04 01:32 | NUR ---
BREAK NURSE REPORTS PATIENT @ 00:35. SON SARA IN ROOM AND LATER PATIENT SPOUSE IN. HOSPITALIST DR GIPSON NOTIFIED. FAMILY REPORTS THEY HAVE HIS PERSONAL POSSESSIONS. RIVET SORTER OFELIA IS MAKING CALL TO [facility]. FAMILY STILL PRESENT IN ROOM. [facility].
--- NOTE | 2024-07-04 03:28 | NUR ---
[facility] PICKED UP PATIENT. EYES PACKED WITH ICE PER INSEAMER TAMARA FOR DONOR.
== END 2024-07-04 00:35 | DRG 163 ==
LOC: ER 09:45 → ICUE 12:27 → MEDS 07-03 10:50
PROVIDERS: Family Medicine; Hospitalist; Student in an Organized Health Care Education/Training Program; ADMIT Internal Medicine
PROC: 02CR3ZZ Extirpation of Matter from Left Pulmonary Artery, Percutaneous Approach (ICD-10-PCS; principal; 2024-06-28)
PROC: 0BH17EZ Insertion of Endotracheal Airway into Trachea, Via Natural or Artificial Opening (ICD-10-PCS; 2024-06-28)
PROC: 5A1945Z Respiratory Ventilation, 24-96 Consecutive Hours (ICD-10-PCS; 2024-06-28)
PROC: 5A12012 Performance of Cardiac Output, Single, Manual (ICD-10-PCS; 2024-06-28)
PROC: 0DH67UZ Insertion of Feeding Device into Stomach, Via Natural or Artificial Opening (ICD-10-PCS; 2024-06-28)
PROC: 5A2204Z Restoration of Cardiac Rhythm, Single (ICD-10-PCS; 2024-06-28)
PROC: B31T1ZZ Fluoroscopy of Left Pulmonary Artery using Low Osmolar Contrast (ICD-10-PCS; 2024-06-28)
PROC: 04HK33Z Insertion of Infusion Device into Right Femoral Artery, Percutaneous Approach (ICD-10-PCS; 2024-06-28)
PROC: 3E063XZ Introduction of Vasopressor into Central Artery, Percutaneous Approach (ICD-10-PCS; 2024-06-28)
PROC: 0T9B70Z Drainage of Bladder with Drainage Device, Via Natural or Artificial Opening (ICD-10-PCS; 2024-06-28)
PROC: 0W9B30Z Drainage of Left Pleural Cavity with Drainage Device, Percutaneous Approach (ICD-10-PCS; 2024-06-28)
PROC: 02H633Z Insertion of Infusion Device into Right Atrium, Percutaneous Approach (ICD-10-PCS; 2024-06-28)
PROC: B5181ZA Fluoroscopy of Superior Vena Cava using Low Osmolar Contrast, Guidance (ICD-10-PCS; 2024-06-28)
PROC: 30243J1 Transfusion of Nonautologous Serum Albumin into Central Vein, Percutaneous Approach (ICD-10-PCS; 2024-06-29)
PROC: 4A133R1 Monitoring of Arterial Saturation, Peripheral, Percutaneous Approach (ICD-10-PCS; 2024-06-30)
DX: I26.99 Other pulmonary embolism without acute cor pulmonale (principal); I21.A1 Myocardial infarction type 2; J18.9 Pneumonia, unspecified organism; J96.01 Acute respiratory failure with hypoxia; R65.20 Severe sepsis without septic shock; Z66 Do not resuscitate; N17.0 Acute kidney failure with tubular necrosis; J69.0 Pneumonitis due to inhalation of food and vomit; S22.20XA Unspecified fracture of sternum, initial encounter for closed fracture; S22.42XA Multiple fractures of ribs, left side, initial encounter for closed fracture; E87.21 Acute metabolic acidosis; S27.0XXA Traumatic pneumothorax, initial encounter; I46.8 Cardiac arrest due to other underlying condition; Z96.649 Presence of unspecified artificial hip joint; N18.30 Chronic kidney disease, stage 3 unspecified; D63.1 Anemia in chronic kidney disease; R57.0 Cardiogenic shock; X58.XXXA Exposure to other specified factors, initial encounter; I50.9 Heart failure, unspecified; D50.9 Iron deficiency anemia, unspecified; I48.91 Unspecified atrial fibrillation; Z88.5 Allergy status to narcotic agent; Z79.899 Other long term (current) drug therapy; Z87.81 Personal history of (healed) traumatic fracture; Z98.42 Cataract extraction status, left eye; Z98.41 Cataract extraction status, right eye; Z99.81 Dependence on supplemental oxygen; Z28.29 Immunization not carried out because of patient decision for other reason
CPT/HCPCS: 31500; 36415; 36430; 36556; 36620; 70450; 71045; 71260; 74177; 76937; 80047; 80048; 80053; 80069; 82330; 82435; 82803; 82947; 83540; 83550; 83605; 83690; 83735; 83880; 84100; 84132; 84295; 84478; 84484; 85014; 85018; 85025; 85027; 85049; 85347; 85520; 85610; 85730; 86850; 86900; 86901; 86923; 87040; 87070; 87205; 92950; 93005; 93010; 93306; 93308; 93321; 93970; 94002; 94003; 96365; 96366; 96368; 96375; 96376; 99291-25; A9270; C1751; C1757; C1769; C1887; J0282; J0696; J1644; J1815; J2060; J2250; J2270; J2371; J2470; J2543; J2704; J3010; J3411; J3480; J7030; J7050; J7060; J7799; P9016; P9045; Q9967